=== PATIENT | female | born 1945 | race Two or more races ===

== ENCOUNTER 2022-12-21 02:51 | Inpatient (IN) | payer OTHER ==
[~2022-12-21] VITALS: Ht 167.6 cm; Wt 45.0 kg
[2022-12-21 03:35] LABS: Basophils # (auto) 0.1 10 ^3/uL (0-0.2); Eosinophils # (auto) 0.2 10 ^3/uL (0-0.8); Eosinophils % (auto) 2.3 % (0.0-7.0); Hematocrit 37.4 % (36.0-46.0); Hemoglobin 12.8 g/dL (12.2-16.2); Lymphocytes # (auto) 2.2 10 ^3/uL (0.4-5.4); Lymphocytes % (auto) 29.4 % (10.0-50.0); Mean Corpuscular Hemoglobin 31.4 pg (28.0-32.0); Mean Corpuscular Hgb Conc. 34.2 g/dL (32.0-36.0); Monocytes # (auto) 0.5 10 ^3/uL (0-1.3); Monocytes % (auto) 6.8 % (0.0-12.0); Neutrophils # (auto) 4.6 10 ^3/uL (1.6-8.6); Neutrophils % (auto) 60.5 % (37.0-80.0); Nucleated Red Blood Cells % 0.1 %; Red Blood Cells 4.07 10^6/uL (4.0-5.20); Red Cell Distribution Width 13.8 % (11.8-14.3); White Blood Cell 7.6 10^3/uL (4.4-10.8)
[2022-12-21 04:12] LABS: Partial Thromboplastin Time 49.8 SEC (24.5-34.5)
[2022-12-21 04:29] LABS: INR > 8.0 (0.9-1.15)
[2022-12-21] MEDS ORDERED: PHYTONADIONE (VIT K)10 MG/ML 1ML VIAL SUBCUT ONE (04:45)
[2022-12-21] MEDS ORDERED: PANTOPRAZOLE 40mg/50ML NS AE 50 ML IV ONE (04:45)
[2022-12-21] MEDS ORDERED: PANTOPRAZOLE 80 MG in SODIUM CHL 0.9% 100 ML IV ONE (04:45)
[2022-12-21] MEDS ORDERED: IOHEXOL 300 MG/ML 100ML BOTTLE IJ ONE (05:59)
[2022-12-21] MEDS ORDERED: PANTOPRAZOLE 40 MG/10 ML VIAL INJ IV ONE (06:14)
[2022-12-21 06:39] LABS: Potassium 3.4 mmol/L (3.5-5.1)
[2022-12-21 06:41] LABS: BUN/Creatinine Ratio 26.5 (10.0-20.0)
[2022-12-21 06:42] LABS: Albumin 3.5 g/dL (3.4-5.0); Bilirubin, Total 0.3 mg/dL (0.2-1.0); Calcium 8.4 mg/dL (8.5-10.1); Magnesium 1.8 mg/dL (1.6-2.6); Total Protein 6.3 g/dL (6.4-8.2)
[2022-12-21] MEDS ORDERED: DOCUSATE SOD 100 MG CAP PO PRN (09:15)
[2022-12-21] MEDS ORDERED: ONDANSETRON HCL 4 MG/2 ML VIAL IV PRN (09:15)
[2022-12-21 09:43] LABS: Urine Bacteria None Seen /hpf (None Seen); Urine WBC None Seen /hpf (0 - 5)
[2022-12-21 09:51] LABS: Basophils # (auto) 0.2 10 ^3/uL (0-0.2); Eosinophils # (auto) 0.2 10 ^3/uL (0-0.8); Eosinophils % (auto) 2.6 % (0.0-7.0); Hematocrit 37.8 % (36.0-46.0); Hemoglobin 12.7 g/dL (12.2-16.2); Lymphocytes # (auto) 1.7 10 ^3/uL (0.4-5.4); Lymphocytes % (auto) 24.6 % (10.0-50.0); Mean Corpuscular Hemoglobin 31.2 pg (28.0-32.0); Mean Corpuscular Hgb Conc. 33.5 g/dL (32.0-36.0); Mean Corpuscular Volume 93.2 fL (80.0-100.0); Monocytes # (auto) 0.3 10 ^3/uL (0-1.3); Monocytes % (auto) 4.8 % (0.0-12.0); Neutrophils # (auto) 4.4 10 ^3/uL (1.6-8.6); Nucleated Red Blood Cells % 0.3 %; Red Blood Cells 4.06 10^6/uL (4.0-5.20); Red Cell Distribution Width 13.8 % (11.8-14.3); White Blood Cell 6.7 10^3/uL (4.4-10.8)
[2022-12-21 09:57] LABS: INR > 8.0 (0.9-1.15)
[2022-12-21] MEDS: SODIUM CHLOR 0.9% PF (SALINE LOCK) 10ML VIAL/SYR IV SCH ×2 (12:14→22:11)
[2022-12-21 12:23] VITALS: BP 137/55
[2022-12-21 12:25] LABS: Urine Specific Gravity > 1.050 (1.001-1.035)
[2022-12-21 12:38] VITALS: BP 137/55
[2022-12-21 13:05] LABS: Urine Blood 1+ /uL (Negative); Urine Mucus FEW (None Seen)
[2022-12-21 15:30] VITALS: BP 133/56
[2022-12-21 15:54] LABS: Basophils # (auto) 0.1 10 ^3/uL (0-0.2); Eosinophils # (auto) 0.2 10 ^3/uL (0-0.8); Eosinophils % (auto) 2.9 % (0.0-7.0); Hematocrit 34.5 % (36.0-46.0); Hemoglobin 11.3 g/dL (12.2-16.2); Lymphocytes # (auto) 2.1 10 ^3/uL (0.4-5.4); Lymphocytes % (auto) 35.8 % (10.0-50.0); Mean Corpuscular Hemoglobin 30.8 pg (28.0-32.0); Mean Corpuscular Hgb Conc. 32.7 g/dL (32.0-36.0); Mean Corpuscular Volume 94.1 fL (80.0-100.0); Monocytes # (auto) 0.5 10 ^3/uL (0-1.3); Monocytes % (auto) 8.6 % (0.0-12.0); Neutrophils # (auto) 3.1 10 ^3/uL (1.6-8.6); Neutrophils % (auto) 51.7 % (37.0-80.0); Nucleated Red Blood Cells % 0.2 %; Red Blood Cells 3.66 10^6/uL (4.0-5.20); Red Cell Distribution Width 14.1 % (11.8-14.3); White Blood Cell 5.9 10^3/uL (4.4-10.8)
[2022-12-21 21:36] LABS: Basophils # (auto) 0.1 10 ^3/uL (0-0.2); Eosinophils # (auto) 0.2 10 ^3/uL (0-0.8); Eosinophils % (auto) 3.2 % (0.0-7.0); Hematocrit 34.4 % (36.0-46.0); Hemoglobin 11.4 g/dL (12.2-16.2); Lymphocytes # (auto) 2.1 10 ^3/uL (0.4-5.4); Lymphocytes % (auto) 35.4 % (10.0-50.0); Mean Corpuscular Hemoglobin 30.9 pg (28.0-32.0); Mean Corpuscular Volume 93.5 fL (80.0-100.0); Monocytes # (auto) 0.5 10 ^3/uL (0-1.3); Monocytes % (auto) 7.8 % (0.0-12.0); Neutrophils # (auto) 3.1 10 ^3/uL (1.6-8.6); Neutrophils % (auto) 52.6 % (37.0-80.0); Nucleated Red Blood Cells % 0.3 %; Red Blood Cells 3.68 10^6/uL (4.0-5.20); Red Cell Distribution Width 13.8 % (11.8-14.3); White Blood Cell 5.8 10^3/uL (4.4-10.8)
[2022-12-22 03:16] LABS: Basophils # (auto) 0.1 10 ^3/uL (0-0.2); Basophils % (auto) 1.3 % (0.0-2.0); Eosinophils # (auto) 0.1 10 ^3/uL (0-0.8); Eosinophils % (auto) 2.6 % (0.0-7.0); Hematocrit 33.6 % (36.0-46.0); Hemoglobin 11.3 g/dL (12.2-16.2); Lymphocytes # (auto) 1.9 10 ^3/uL (0.4-5.4); Lymphocytes % (auto) 34.9 % (10.0-50.0); Mean Corpuscular Hemoglobin 31.5 pg (28.0-32.0); Mean Corpuscular Hgb Conc. 33.8 g/dL (32.0-36.0); Mean Corpuscular Volume 93.2 fL (80.0-100.0); Monocytes # (auto) 0.5 10 ^3/uL (0-1.3); Monocytes % (auto) 8.7 % (0.0-12.0); Neutrophils # (auto) 2.9 10 ^3/uL (1.6-8.6); Neutrophils % (auto) 52.5 % (37.0-80.0); Nucleated Red Blood Cells % 0.1 %; Red Cell Distribution Width 13.7 % (11.8-14.3); White Blood Cell 5.5 10^3/uL (4.4-10.8)
[2022-12-22] MEDS: SODIUM CHLOR 0.9% PF (SALINE LOCK) 10ML VIAL/SYR IV SCH (05:53)
[2022-12-22 06:39] LABS: INR 1.61 (0.9-1.15)
[2022-12-22 08:28] VITALS: BP 131/49
== END 2022-12-22 10:55 | disposition left against medical advice (07) | DRG 159 ==
LOC: EDBD 02:51 → ER 02:51 → OVERFLOW 09:03
PROVIDERS: ADMIT Internal Medicine; ATTEND Internal Medicine
PROC: 30233K1 Transfusion of Nonautologous Frozen Plasma into Peripheral Vein, Percutaneous Approach (ICD-10-PCS; principal; 2022-12-21)
DX: K14.8 Other diseases of tongue (principal); R79.1 Abnormal coagulation profile; R58 Hemorrhage, not elsewhere classified; S00.502A Unspecified superficial injury of oral cavity, initial encounter; X58.XXXA Exposure to other specified factors, initial encounter; Z79.01 Long term (current) use of anticoagulants; Z86.718 Personal history of other venous thrombosis and embolism; Z88.5 Allergy status to narcotic agent; Y93.89 Activity, other specified; Y92.89 Other specified places as the place of occurrence of the external cause; Y99.8 Other external cause status
CPT/HCPCS: 36415; 70450; 74177; 80053; 81001; 83735; 83880; 84484; 85025; 85610; 85730; 86850; 86900; 86901; 96365; 96366; 96368; 96372; 99291; C9113; G0378; J3430

== ENCOUNTER 2023-01-29 03:58 | Inpatient (IN) | payer OTHER ==
[~2023-01-29] VITALS: Ht 152.4 cm; Wt 62.6 kg
[2023-01-29 04:30] VITALS: PULSE 77; RESP 16; O2SAT 94
[2023-01-29] MEDS ORDERED: SODIUM CHLORIDE 0.9% 1,000 ML IV ONE (04:30)
[2023-01-29] MEDS ORDERED: ONDANSETRON HCL 4 MG/2 ML VIAL IV ONE (04:30)
[2023-01-29] MEDS ORDERED: HYDROmorphone HCL 2 MG/ML VL/or syr IV ONE (04:30)
[2023-01-29 05:31] LABS: Basophils # (auto) 0 10 ^3/uL (0-0.2); Basophils % (auto) 0.6 % (0.0-2.0); Eosinophils # (auto) 0 10 ^3/uL (0-0.8); Eosinophils % (auto) 0.7 % (0.0-7.0); Hematocrit 35.1 % (36.0-46.0); Hemoglobin 11.7 g/dL (12.2-16.2); Lymphocytes # (auto) 0.7 10 ^3/uL (0.4-5.4); Lymphocytes % (auto) 12.4 % (10.0-50.0); Mean Corpuscular Hemoglobin 31.5 pg (28.0-32.0); Mean Corpuscular Hgb Conc. 33.3 g/dL (32.0-36.0); Mean Corpuscular Volume 94.6 fL (80.0-100.0); Monocytes # (auto) 0.5 10 ^3/uL (0-1.3); Monocytes % (auto) 8.4 % (0.0-12.0); Neutrophils # (auto) 4.7 10 ^3/uL (1.6-8.6); Neutrophils % (auto) 77.9 % (37.0-80.0); Nucleated Red Blood Cells % 0.2 %; Red Blood Cells 3.71 10^6/uL (4.0-5.20)
[2023-01-29 05:33] LABS: Albumin 3.1 g/dL (3.4-5.0); Calcium 8.2 mg/dL (8.5-10.1); Potassium 3.1 mmol/L (3.5-5.1)
[2023-01-29 05:38] LABS: BUN/Creatinine Ratio 19.5 (10.0-20.0); Bilirubin, Total 0.4 mg/dL (0.2-1.0); Total Protein 6.4 g/dL (6.4-8.2)
[2023-01-29 05:45] LABS: INR 1.71 (0.9-1.15)
[2023-01-29 08:00] VITALS: PULSE 53; RESP 12; O2SAT 97
[2023-01-29] MEDS ORDERED: ONDANSETRON HCL 4 MG/2 ML VIAL IV PRN (09:45)
[2023-01-29] MEDS ORDERED: DOCUSATE SOD 100 MG CAP PO PRN (09:45)
[2023-01-29] MEDS ORDERED: POTASSIUM EFFERVESENT TAB 25 MEQ PO ONE (09:45)
[2023-01-29] MEDS ORDERED: MORPHINE SULFATE INJ 2 MG/ml SYRG IV PRN (09:45)
[2023-01-29] MEDS: HYDROcodone-ACET 5/325MG TAB PO PRN ×2 (11:52→20:08)
[2023-01-29] MEDS ORDERED: WARFARIN SODIUM 5 MG TAB PO ONE (17:00)
[2023-01-29 19:55] VITALS: RESP 12; O2SAT 97
[2023-01-29 23:39] VITALS: BP 129/48; PULSE 60; RESP 16; TEMP 98.2; O2SAT 95
[2023-01-30] VITALS (8 sets, daily range): BP systolic 117–134; BP diastolic 54–66; PULSE 57–70; RESP 14–20; TEMP 97.7–98.9; O2SAT 91–98
[2023-01-30] MEDS: HYDROcodone-ACET 5/325MG TAB PO PRN ×4 (00:55→20:28)
[2023-01-30] MEDS ORDERED: WARF-66 PO (04:24)
[2023-01-30] MEDS ORDERED: ATOR10TA52 PO (04:27)
[2023-01-30] MEDS ORDERED: OXY5T GT (04:28)
[2023-01-30] MEDS ORDERED: CALC500T30 PO (04:29)
[2023-01-30] MEDS ORDERED: CHOL20007 PO (04:30)
[2023-01-30 07:13] LABS: Potassium 3.9 mmol/L (3.5-5.1)
[2023-01-30 07:18] LABS: Basophils # (auto) 0 10 ^3/uL (0-0.2); Basophils % (auto) 0.6 % (0.0-2.0); Eosinophils # (auto) 0.1 10 ^3/uL (0-0.8); Eosinophils % (auto) 2.9 % (0.0-7.0); Hematocrit 33.5 % (36.0-46.0); Hemoglobin 11.1 g/dL (12.2-16.2); Lymphocytes # (auto) 1.4 10 ^3/uL (0.4-5.4); Lymphocytes % (auto) 31.3 % (10.0-50.0); Mean Corpuscular Hemoglobin 31.5 pg (28.0-32.0); Mean Corpuscular Hgb Conc. 33.3 g/dL (32.0-36.0); Mean Corpuscular Volume 94.7 fL (80.0-100.0); Monocytes # (auto) 0.5 10 ^3/uL (0-1.3); Monocytes % (auto) 10.6 % (0.0-12.0); Neutrophils # (auto) 2.5 10 ^3/uL (1.6-8.6); Neutrophils % (auto) 54.6 % (37.0-80.0); Red Blood Cells 3.53 10^6/uL (4.0-5.20); White Blood Cell 4.6 10^3/uL (4.4-10.8)
[2023-01-30 07:22] LABS: Albumin 2.7 g/dL (3.4-5.0); BUN/Creatinine Ratio 18.9 (10.0-20.0); Bilirubin, Total 0.5 mg/dL (0.2-1.0); Calcium 8.2 mg/dL (8.5-10.1); Total Protein 5.9 g/dL (6.4-8.2)
[2023-01-30 08:30] LABS: INR 1.81 (0.9-1.15); Partial Thromboplastin Time 41.7 SEC (24.5-34.5)
[2023-01-30] MEDS ORDERED: WARFARIN SODIUM 5 MG TAB PO ONE (17:00)
[2023-01-31] VITALS (7 sets, daily range): BP systolic 97–138; BP diastolic 58–73; PULSE 51–82; RESP 16–22; TEMP 98–98.3; O2SAT 90–99
[2023-01-31] MEDS: HYDROcodone-ACET 5/325MG TAB PO PRN ×4 (05:36→23:32)
[2023-01-31 06:21] LABS: Basophils # (auto) 0 10 ^3/uL (0-0.2); Eosinophils # (auto) 0.1 10 ^3/uL (0-0.8); Eosinophils % (auto) 3.6 % (0.0-7.0); Hematocrit 35.2 % (36.0-46.0); Hemoglobin 11.6 g/dL (12.2-16.2); Lymphocytes % (auto) 25.6 % (10.0-50.0); Mean Corpuscular Hemoglobin 31.2 pg (28.0-32.0); Mean Corpuscular Hgb Conc. 32.9 g/dL (32.0-36.0); Mean Corpuscular Volume 94.6 fL (80.0-100.0); Monocytes # (auto) 0.4 10 ^3/uL (0-1.3); Monocytes % (auto) 9.5 % (0.0-12.0); Neutrophils # (auto) 2.4 10 ^3/uL (1.6-8.6); Neutrophils % (auto) 60.3 % (37.0-80.0); Nucleated Red Blood Cells % 0.3 %; Red Blood Cells 3.72 10^6/uL (4.0-5.20); Red Cell Distribution Width 13.6 % (11.8-14.3)
[2023-01-31 06:26] LABS: INR 1.9 (0.9-1.15); Partial Thromboplastin Time 41.6 SEC (24.5-34.5)
[2023-01-31 06:32] LABS: Potassium 3.7 mmol/L (3.5-5.1)
[2023-01-31 06:48] LABS: BUN/Creatinine Ratio 15.5 (10.0-20.0); Calcium 8.4 mg/dL (8.5-10.1)
[2023-01-31 15:50] LABS: Urine Bacteria MANY /hpf (None Seen); Urine Blood TRACE /uL (Negative); Urine Mucus FEW (None Seen); Urine Specific Gravity 1.016 (1.001-1.035); Urine WBC 79 /hpf (0 - 5)
[2023-01-31] MEDS ORDERED: DOCUSATE SOD 100 MG CAP PO ONE (16:30)
[2023-01-31] MEDS ORDERED: cefTRIAXone 1GM/50ML D5W 50 ML IV ONE (16:30)
[2023-01-31] MEDS ORDERED: WARFARIN SODIUM 5 MG TAB PO ONE (17:00)
[2023-01-31] MEDS: LACTULOSE 20Gm/30ML SOLN PO SCH (22:00)
[2023-01-31] MEDS ORDERED: HYDROcodone-ACET 5/325MG TAB PO ONE (23:00)
[2023-01-31] MEDS: DOCUSATE SOD 100 MG CAP PO SCH (23:34)
[2023-02-01] VITALS (7 sets, daily range): BP systolic 110–152; BP diastolic 56–82; PULSE 60–83; RESP 16–17; TEMP 97.5–98.3; O2SAT 92–99
[2023-02-01] MEDS: HYDROcodone-ACET 7.5/325MG TAB PO PRN ×2 (02:12→22:10)
[2023-02-01] MEDS: HYDROcodone-ACET 5/325MG TAB PO PRN ×3 (04:43→17:11)
[2023-02-01 07:38] LABS: Basophils # (auto) 0 10 ^3/uL (0-0.2); Eosinophils # (auto) 0.1 10 ^3/uL (0-0.8); Eosinophils % (auto) 3.5 % (0.0-7.0); Hematocrit 35.3 % (36.0-46.0); Hemoglobin 11.6 g/dL (12.2-16.2); Lymphocytes # (auto) 1.3 10 ^3/uL (0.4-5.4); Lymphocytes % (auto) 33.7 % (10.0-50.0); Mean Corpuscular Hemoglobin 31.2 pg (28.0-32.0); Mean Corpuscular Hgb Conc. 32.9 g/dL (32.0-36.0); Mean Corpuscular Volume 94.9 fL (80.0-100.0); Monocytes # (auto) 0.4 10 ^3/uL (0-1.3); Monocytes % (auto) 10.7 % (0.0-12.0); Neutrophils % (auto) 51.1 % (37.0-80.0); Nucleated Red Blood Cells % 0.1 %; Red Blood Cells 3.72 10^6/uL (4.0-5.20); Red Cell Distribution Width 13.7 % (11.8-14.3); White Blood Cell 3.9 10^3/uL (4.4-10.8)
[2023-02-01 07:45] LABS: INR 2.65 (0.9-1.15)
[2023-02-01 07:53] LABS: Calcium 8.4 mg/dL (8.5-10.1); Potassium 3.8 mmol/L (3.5-5.1)
[2023-02-01 07:56] LABS: BUN/Creatinine Ratio 19.4 (10.0-20.0)
[2023-02-01] MEDS: cefTRIAXone 1GM/50ML D5W 50 ML IV SCH (09:05)
[2023-02-01] MEDS: LACTULOSE 20Gm/30ML SOLN PO SCH ×2 (09:10→22:00)
[2023-02-01] MEDS: DOCUSATE SOD 100 MG CAP PO SCH ×2 (09:10→22:00)
[2023-02-01] MEDS ORDERED: WARFARIN SODIUM 2 MG TAB PO ONE (17:00)
[2023-02-01] MEDS ORDERED: IOHEXOL 300 MG/ML 100ML BOTTLE IJ ONE (18:39)
[2023-02-01] MEDS ORDERED: ACETAMINOPHEN 500 MG TAB PO PRN (19:15)
[2023-02-02] MEDS: HYDROcodone-ACET 7.5/325MG TAB PO PRN ×2 (02:12→06:25)
[2023-02-02 05:00] VITALS: BP 132/55; PULSE 61; RESP 18; TEMP 97.8; O2SAT 98
[2023-02-02 06:36] LABS: Basophils # (auto) 0 10 ^3/uL (0-0.2); Basophils % (auto) 1.1 % (0.0-2.0); Eosinophils # (auto) 0.2 10 ^3/uL (0-0.8); Eosinophils % (auto) 4.3 % (0.0-7.0); Hematocrit 34.9 % (36.0-46.0); Hemoglobin 11.5 g/dL (12.2-16.2); Lymphocytes # (auto) 1.2 10 ^3/uL (0.4-5.4); Lymphocytes % (auto) 32.6 % (10.0-50.0); Mean Corpuscular Hgb Conc. 32.9 g/dL (32.0-36.0); Mean Corpuscular Volume 94.2 fL (80.0-100.0); Monocytes # (auto) 0.4 10 ^3/uL (0-1.3); Nucleated Red Blood Cells % 0.1 %; Red Cell Distribution Width 13.5 % (11.8-14.3); White Blood Cell 3.8 10^3/uL (4.4-10.8)
[2023-02-02 06:44] LABS: INR 2.48 (0.9-1.15)
[2023-02-02 07:00] LABS: Albumin 2.6 g/dL (3.4-5.0); Potassium 3.8 mmol/L (3.5-5.1)
[2023-02-02 07:08] LABS: Bilirubin, Total 0.3 mg/dL (0.2-1.0); Calcium 8.6 mg/dL (8.5-10.1); Total Protein 5.8 g/dL (6.4-8.2)
[2023-02-02 08:00] VITALS: BP 123/57; PULSE 50; PULSE 66; RESP 16; TEMP 98; O2SAT 97
[2023-02-02 08:30] VITALS: BP 123/57; PULSE 66; RESP 16; TEMP 98.3; O2SAT 97
[2023-02-02 09:23] LABS: Carcinoembryonic Antigen 8.59 ng/mL (<5.0 OR =)
[2023-02-02] MEDS: cefTRIAXone 1GM/50ML D5W 50 ML IV SCH (09:36)
[2023-02-02] MEDS ORDERED: NITR-52 PO (09:37)
[2023-02-02] MEDS: DOCUSATE SOD 100 MG CAP PO SCH (09:43)
[2023-02-02] MEDS: LACTULOSE 20Gm/30ML SOLN PO SCH (09:43)
[2023-02-02] MEDS ORDERED: PANTOPRAZOLE 40 MG TAB PO SCH (10:00)
[2023-02-02 13:23] VITALS: BP 142/51; PULSE 69; RESP 16; TEMP 98; O2SAT 95
[2023-02-02 14:44] VITALS: BP 134/78; PULSE 77; RESP 17; TEMP 98.2; O2SAT 98
[2023-02-02] MEDS ORDERED: WARFARIN SODIUM 2 MG TAB PO ONE (17:00)
== END 2023-02-02 15:10 | disposition home or self-care (01) | DRG 534 ==
LOC: ER 03:58 → EDBD 03:58 → TELE 09:46 → TELE-CENTR 22:56
PROVIDERS: ADMIT Internal Medicine Pulmonary Disease; ATTEND Internal Medicine
DX: S72.92XA Unspecified fracture of left femur, initial encounter for closed fracture (principal); E44.1 Mild protein-calorie malnutrition; D64.9 Anemia, unspecified; E87.6 Hypokalemia; K76.9 Liver disease, unspecified; F17.200 Nicotine dependence, unspecified, uncomplicated; M47.812 Spondylosis without myelopathy or radiculopathy, cervical region; M13.88 Other specified arthritis, other site; W18.39XA Other fall on same level, initial encounter; Z68.27 Body mass index [BMI] 27.0-27.9, adult; Z88.5 Allergy status to narcotic agent; Z79.01 Long term (current) use of anticoagulants; Z82.49 Family history of ischemic heart disease and other diseases of the circulatory system; Z83.3 Family history of diabetes mellitus; Z86.718 Personal history of other venous thrombosis and embolism; Z86.19 Personal history of other infectious and parasitic diseases; Z90.49 Acquired absence of other specified parts of digestive tract; Z98.82 Breast implant status; Y93.89 Activity, other specified; Y92.89 Other specified places as the place of occurrence of the external cause; Y99.8 Other external cause status
CPT/HCPCS: 36415; 70450; 71250; 72125; 72170; 73700; 74176; 74178; 80048; 80053; 80061; 81001; 82105; 82306; 82378; 82550; 82607; 84443; 84484; 85025; 85610; 85730; 86301; 86304; 87086; 87088; 87186; 93005; 97110; 97116; 97163; 97530; G0378; J0696; J2405

== ENCOUNTER 2023-05-10 10:06 | Inpatient (IN) | payer OTHER ==
[~2023-05-10] VITALS: Ht 157.5 cm; Wt 57.0 kg
[~2023-05-10 10:06] MED LIST: ATOR10TA52 PO; CALC500T30 PO; CHOL20007 PO; NITR-52 PO; OXY5T GT; WARF-66 PO
[2023-05-10 10:37] LABS: Basophils # (auto) 0.1 10 ^3/uL (0-0.2); Basophils % (auto) 1.2 % (0.0-2.0); Eosinophils # (auto) 0.1 10 ^3/uL (0-0.8); Eosinophils % (auto) 0.9 % (0.0-7.0); Hematocrit 35.7 % (36.0-46.0); Hemoglobin 11.5 g/dL (12.2-16.2); Lymphocytes % (auto) 15.5 % (10.0-50.0); Mean Corpuscular Hemoglobin 30.1 pg (28.0-32.0); Mean Corpuscular Hgb Conc. 32.3 g/dL (32.0-36.0); Mean Corpuscular Volume 93.2 fL (80.0-100.0); Monocytes # (auto) 0.7 10 ^3/uL (0-1.3); Neutrophils # (auto) 4.9 10 ^3/uL (1.6-8.6); Neutrophils % (auto) 72.4 % (37.0-80.0); Nucleated Red Blood Cells % 0.2 %; Red Blood Cells 3.83 10^6/uL (4.0-5.20); Red Cell Distribution Width 15.7 % (11.8-14.3); White Blood Cell 6.7 10^3/uL (4.4-10.8)
[2023-05-10 10:57] LABS: Alanine Aminotransferase 18 U/L (7-40); Alkaline Phosphatase 462 U/L (46-116); Anion Gap 7 (5-15); Aspartate Aminotransferase 47 U/L (13-40); BUN/Creatinine Ratio 15.1 (10.0-20.0); Blood Urea Nitrogen 13 mg/dL (9-23); Calcium 9.3 mg/dL (8.5-10.1); Carbon Dioxide 27 mmol/L (20-30); Chloride 105 mmol/L (98-107); Glucose 105 mg/dL (74-106); Potassium 3.9 mmol/L (3.5-5.1); Sodium 139 mmol/L (136-145); Total Protein 6.3 g/dL (5.7-8.2)
[2023-05-10 11:10] LABS: INR 3.82 (0.9-1.15); Partial Thromboplastin Time 44.8 SEC (24.5-34.5); Prothrombin Time 36.7 sec (9.3-11.8)
[2023-05-10] MEDS ORDERED: IOHEXOL 350 MG/ML 100ML IJ ONE (14:06)
[2023-05-10] MEDS ORDERED: MORPHINE SULFATE INJ 2 MG/ml SYRG IV PRN (14:30)
[2023-05-10] MEDS ORDERED: ACETAMINOPHEN 325 MG TAB PO PRN (14:30)
[2023-05-10] MEDS ORDERED: ATOR20TA50 PO (14:30)
[2023-05-10] MEDS ORDERED: NITROGLYCERIN 0.4 MG SL TAB SL PRN (14:30)
[2023-05-10] MEDS ORDERED: HEPARIN SODIUM (PORCINE) 5000 UNITS/ML 1ML VIAL IV ONE (14:30)
[2023-05-10] MEDS ORDERED: DOCUSATE SOD 100 MG CAP PO PRN (14:30)
[2023-05-10] MEDS ORDERED: PANTOPRAZOLE 40 MG/10 ML VIAL INJ IV ONE (14:45)
[2023-05-10 17:00] VITALS: PULSE 72; RESP 19; O2SAT 95
[2023-05-10] MEDS: HEPARIN DRIP/D5W 100UNITS/ML 250 ML IV SCH (17:04)
[2023-05-10] MEDS: SENNA 8.6 MG TAB PO SCH (22:00)
[2023-05-10] MEDS: HYDROcodone-ACET 7.5/325MG TAB PO PRN (22:02)
[2023-05-10 23:18] LABS: INR 3.56 (0.9-1.15); Partial Thromboplastin Time 47.3 SEC (24.5-34.5); Prothrombin Time 34.4 sec (9.3-11.8)
[2023-05-11] VITALS (7 sets, daily range): BP systolic 103–136; BP diastolic 44–68; PULSE 73–93; RESP 18–20; TEMP 97.6–99.2; O2SAT 93–98
[2023-05-11 06:17] LABS: Basophils # (auto) 0 10 ^3/uL (0-0.2); Basophils % (auto) 0.8 % (0.0-2.0); Eosinophils # (auto) 0.1 10 ^3/uL (0-0.8); Eosinophils % (auto) 2.3 % (0.0-7.0); Hematocrit 30.8 % (36.0-46.0); Hemoglobin 10.1 g/dL (12.2-16.2); Lymphocytes % (auto) 17.5 % (10.0-50.0); Mean Corpuscular Hemoglobin 30.5 pg (28.0-32.0); Mean Corpuscular Hgb Conc. 32.9 g/dL (32.0-36.0); Mean Corpuscular Volume 92.6 fL (80.0-100.0); Monocytes # (auto) 0.6 10 ^3/uL (0-1.3); Neutrophils # (auto) 3.8 10 ^3/uL (1.6-8.6); Neutrophils % (auto) 68.4 % (37.0-80.0); Red Blood Cells 3.33 10^6/uL (4.0-5.20); Red Cell Distribution Width 15.5 % (11.8-14.3); White Blood Cell 5.6 10^3/uL (4.4-10.8)
[2023-05-11 06:20] LABS: Alanine Aminotransferase 17 U/L (7-40); Alkaline Phosphatase 481 U/L (46-116); Anion Gap 8 (5-15); BUN/Creatinine Ratio 16.8 (10.0-20.0); Blood Urea Nitrogen 16 mg/dL (9-23); Calcium 8.4 mg/dL (8.7-10.4); Carbon Dioxide 27 mmol/L (20-30); Chloride 105 mmol/L (98-107); Glucose 95 mg/dL (74-106); Potassium 3.5 mmol/L (3.5-5.1); Sodium 140 mmol/L (136-145)
[2023-05-11 06:21] LABS: Albumin 3.3 g/dL (3.2-4.8); Aspartate Aminotransferase 54 U/L (13-40)
[2023-05-11 06:22] LABS: Bilirubin, Total 0.6 mg/dL (0.2-1.0); Total Protein 5.4 g/dL (5.7-8.2)
[2023-05-11 06:32] LABS: INR 3.02 (0.9-1.15); Partial Thromboplastin Time 53.2 SEC (24.5-34.5); Prothrombin Time 29.5 sec (9.3-11.8)
[2023-05-11] MEDS: NICOTINE 21MG/24 HR TOPICAL PATCH TD SCH (10:00)
[2023-05-11] MEDS: PANTOPRAZOLE 40 MG/10 ML VIAL INJ IV SCH (10:10)
[2023-05-11] MEDS: ATORVASTATIN 20 MG TAB PO SCH (10:10)
[2023-05-11] MEDS: HEPARIN DRIP/D5W 100UNITS/ML 250 ML IV SCH (11:00)
[2023-05-11 17:57] LABS: INR 3.09 (0.9-1.15); Prothrombin Time 30.7 sec (9.3-11.8)
[2023-05-11 18:11] LABS: Partial Thromboplastin Time > 139.0 SEC (24.5-34.5)
[2023-05-11] MEDS ORDERED: HEPARIN DRIP/D5W 100UNITS/ML 250 ML IV SCH (19:15)
[2023-05-11] MEDS: HYDROcodone-ACET 7.5/325MG TAB PO PRN (19:58)
[2023-05-11] MEDS: SENNA 8.6 MG TAB PO SCH (20:16)
[2023-05-12] VITALS (8 sets, daily range): BP systolic 106–140; BP diastolic 50–64; PULSE 68–81; RESP 15–20; TEMP 97.6–98.6; O2SAT 90–99
[2023-05-12 03:48] LABS: INR 3.11 (0.9-1.15); Prothrombin Time 30.3 sec (9.3-11.8)
[2023-05-12 03:50] LABS: Partial Thromboplastin Time > 139.0 SEC (24.5-34.5)
[2023-05-12 05:24] LABS: Basophils # (auto) 0 10 ^3/uL (0-0.2); Basophils % (auto) 0.8 % (0.0-2.0); Eosinophils # (auto) 0.1 10 ^3/uL (0-0.8); Eosinophils % (auto) 2.5 % (0.0-7.0); Hemoglobin 10.2 g/dL (12.2-16.2); Lymphocytes % (auto) 22.3 % (10.0-50.0); Mean Corpuscular Hemoglobin 31.1 pg (28.0-32.0); Mean Corpuscular Hgb Conc. 33.9 g/dL (32.0-36.0); Mean Corpuscular Volume 91.8 fL (80.0-100.0); Monocytes # (auto) 0.5 10 ^3/uL (0-1.3); Monocytes % (auto) 11.1 % (0.0-12.0); Neutrophils # (auto) 2.9 10 ^3/uL (1.6-8.6); Neutrophils % (auto) 63.3 % (37.0-80.0); Red Blood Cells 3.26 10^6/uL (4.0-5.20); Red Cell Distribution Width 15.3 % (11.8-14.3); White Blood Cell 4.7 10^3/uL (4.4-10.8)
[2023-05-12 05:28] LABS: Alanine Aminotransferase 16 U/L (7-40); Albumin 3.2 g/dL (3.2-4.8); Alkaline Phosphatase 436 U/L (46-116); Anion Gap 5 (5-15); Aspartate Aminotransferase 46 U/L (13-40); BUN/Creatinine Ratio 20.3 (10.0-20.0); Bilirubin, Total 0.6 mg/dL (0.2-1.0); Blood Urea Nitrogen 16 mg/dL (9-23); Calcium 8.4 mg/dL (8.7-10.4); Carbon Dioxide 29 mmol/L (20-30); Chloride 105 mmol/L (98-107); Glucose 101 mg/dL (74-106); Magnesium 1.8 mg/dL (1.6-2.6); Potassium 3.6 mmol/L (3.5-5.1); Sodium 139 mmol/L (136-145); Total Protein 5.2 g/dL (5.7-8.2)
[2023-05-12] MEDS: PANTOPRAZOLE 40 MG/10 ML VIAL INJ IV SCH (09:09)
[2023-05-12] MEDS: ATORVASTATIN 20 MG TAB PO SCH (09:09)
[2023-05-12] MEDS: NICOTINE 21MG/24 HR TOPICAL PATCH TD SCH (09:11)
[2023-05-12 12:09] LABS: INR 3.04 (0.9-1.15); Prothrombin Time 29.7 sec (9.3-11.8)
[2023-05-12 12:20] LABS: Partial Thromboplastin Time 93.6 SEC (24.5-34.5)
[2023-05-12] MEDS ORDERED: HEPARIN DRIP/D5W 100UNITS/ML 250 ML IV SCH (13:30)
[2023-05-12] MEDS: ONDANSETRON HCL 4 MG/2 ML VIAL IV PRN (16:45)
[2023-05-12 17:27] LABS: Urine Bacteria MANY /hpf (None Seen); Urine Blood Negative /uL (Negative); Urine Clarity HAZY (Clear); Urine Color Yellow (Yellow); Urine Mucus FEW (None Seen); Urine Protein, UAD Negative (Negative); Urine Specific Gravity 1.011 (1.001-1.035); Urine WBC 5 /hpf (0 - 5)
[2023-05-12 20:21] LABS: INR 2.36 (0.9-1.15); Prothrombin Time 23.4 sec (9.3-11.8)
[2023-05-12] MEDS: HYDROcodone-ACET 7.5/325MG TAB PO PRN (21:23)
[2023-05-12] MEDS: SENNA 8.6 MG TAB PO SCH (21:23)
[2023-05-13] VITALS (13 sets, daily range): BP systolic 110–143; BP diastolic 40–68; PULSE 50–80; RESP 12–24; TEMP 97.8–98.1; O2SAT 90–99
[2023-05-13 02:23] LABS: INR 2.17 (0.9-1.15); Partial Thromboplastin Time 55.8 SEC (24.5-34.5); Prothrombin Time 21.7 sec (9.3-11.8)
[2023-05-13] MEDS: HYDROcodone-ACET 7.5/325MG TAB PO PRN (05:42)
[2023-05-13] MEDS: ATORVASTATIN 20 MG TAB PO SCH (09:07)
[2023-05-13] MEDS: NICOTINE 21MG/24 HR TOPICAL PATCH TD SCH (09:08)
[2023-05-13] MEDS: PANTOPRAZOLE 40 MG/10 ML VIAL INJ IV SCH (09:08)
[2023-05-13 09:25] LABS: INR 2.05 (0.9-1.15); Prothrombin Time 20.5 sec (9.3-11.8)
[2023-05-13] MEDS ORDERED: cefTRIAXone 1GM/50ML D5W 50 ML IV ONE (09:45)
[2023-05-13] MEDS ORDERED: ANGIOMAX 250 MG VIAL IV ONE (12:13)
[2023-05-13] MEDS ORDERED: fentaNYL CITRATE 100 MCG/2 ML VL ONE (12:13)
[2023-05-13] MEDS ORDERED: SODIUM CHL 0.9% 0 ML ONE (12:13)
[2023-05-13] MEDS ORDERED: MIDAZOLAM HCL 2MG/2ML 2ml VIAL (1mg/ml) ONE (12:13)
[2023-05-13] MEDS ORDERED: LIDOCAINE 2%HCL (LOCAL ANESTH.) INJ 20ML MDV ONE (12:23)
[2023-05-13] MEDS ORDERED: IODIXANOL 320MG/ML 100ML BTL IV ONE (12:23)
[2023-05-13] MEDS: HYDROcodone-ACET 5/325MG TAB PO PRN (18:20)
[2023-05-13 18:52] LABS: INR 2.02 (0.9-1.15); Partial Thromboplastin Time 47.4 SEC (24.5-34.5); Prothrombin Time 20.3 sec (9.3-11.8)
[2023-05-13] MEDS: HEPARIN DRIP/D5W 100UNITS/ML 250 ML IV SCH (20:00)
[2023-05-13] MEDS: SENNA 8.6 MG TAB PO SCH (22:39)
[2023-05-14] VITALS (7 sets, daily range): BP systolic 108–145; BP diastolic 54–85; PULSE 60–89; RESP 16–18; TEMP 97.5–98.8; O2SAT 90–98
[2023-05-14] MEDS: HYDROcodone-ACET 7.5/325MG TAB PO PRN ×3 (01:23→22:02)
[2023-05-14 03:02] LABS: INR 2.02 (0.9-1.15); Partial Thromboplastin Time 62.5 SEC (24.5-34.5); Prothrombin Time 20.3 sec (9.3-11.8)
[2023-05-14 06:33] LABS: INR 1.92 (0.9-1.15); Prothrombin Time 19.3 sec (9.3-11.8)
[2023-05-14] MEDS: PANTOPRAZOLE 40 MG/10 ML VIAL INJ IV SCH (09:43)
[2023-05-14] MEDS: cefTRIAXone 1GM/50ML D5W 50 ML IV SCH (09:43)
[2023-05-14] MEDS: NICOTINE 21MG/24 HR TOPICAL PATCH TD SCH (09:44)
[2023-05-14] MEDS: ATORVASTATIN 20 MG TAB PO SCH (09:44)
[2023-05-14 16:15] LABS: Basophils # (auto) 0.1 10 ^3/uL (0-0.2); Basophils % (auto) 1.1 % (0.0-2.0); Eosinophils # (auto) 0.1 10 ^3/uL (0-0.8); Eosinophils % (auto) 1.3 % (0.0-7.0); Hemoglobin 10.2 g/dL (12.2-16.2); Lymphocytes % (auto) 16.1 % (10.0-50.0); Mean Corpuscular Hemoglobin 30.1 pg (28.0-32.0); Mean Corpuscular Hgb Conc. 32.9 g/dL (32.0-36.0); Mean Corpuscular Volume 91.4 fL (80.0-100.0); Monocytes # (auto) 0.6 10 ^3/uL (0-1.3); Monocytes % (auto) 10.2 % (0.0-12.0); Neutrophils # (auto) 4.4 10 ^3/uL (1.6-8.6); Neutrophils % (auto) 71.3 % (37.0-80.0); Nucleated Red Blood Cells % 0.1 %; Red Blood Cells 3.39 10^6/uL (4.0-5.20); Red Cell Distribution Width 14.8 % (11.8-14.3); White Blood Cell 6.1 10^3/uL (4.4-10.8)
[2023-05-14 16:32] LABS: INR 1.79 (0.9-1.15); Partial Thromboplastin Time 53.2 SEC (24.5-34.5); Prothrombin Time 18.1 sec (9.3-11.8)
[2023-05-14] MEDS: HEPARIN DRIP/D5W 100UNITS/ML 250 ML IV SCH (19:56)
[2023-05-14] MEDS: SENNA 8.6 MG TAB PO SCH (22:02)
[2023-05-15] VITALS (7 sets, daily range): BP systolic 115–160; BP diastolic 54–75; PULSE 65–88; RESP 16–21; TEMP 36.7; O2SAT 93–96
[2023-05-15] MEDS: HYDROcodone-ACET 7.5/325MG TAB PO PRN ×2 (03:48→18:52)
[2023-05-15 08:52] LABS: INR 1.53 (0.9-1.15); Prothrombin Time 15.6 sec (9.3-11.8)
[2023-05-15] MEDS: cefTRIAXone 1GM/50ML D5W 50 ML IV SCH (09:26)
[2023-05-15] MEDS: PANTOPRAZOLE 40 MG/10 ML VIAL INJ IV SCH (09:32)
[2023-05-15] MEDS: ATORVASTATIN 20 MG TAB PO SCH (09:32)
[2023-05-15] MEDS: NICOTINE 21MG/24 HR TOPICAL PATCH TD SCH (09:33)
[2023-05-15] MEDS ORDERED: GADOTERATE MEG 10 MMOL/20ml INJ (0.5MMOL/ml) IV ONE (11:13)
[2023-05-15] MEDS: HEPARIN DRIP/D5W 100UNITS/ML 250 ML IV SCH (20:00)
[2023-05-15] MEDS: SENNA 8.6 MG TAB PO SCH (22:33)
[2023-05-15] MEDS: HYDROcodone-ACET 5/325MG TAB PO PRN (22:39)
[2023-05-16] VITALS (8 sets, daily range): BP systolic 113–138; BP diastolic 61–70; PULSE 64–78; RESP 14–20; TEMP 98–98.5; O2SAT 92–96
[2023-05-16] MEDS: HYDROcodone-ACET 7.5/325MG TAB PO PRN ×3 (04:51→21:56)
[2023-05-16 05:40] LABS: Basophils # (auto) 0 10 ^3/uL (0-0.2); Eosinophils # (auto) 0.1 10 ^3/uL (0-0.8); Eosinophils % (auto) 2.4 % (0.0-7.0); Hematocrit 31.1 % (36.0-46.0); Hemoglobin 10.3 g/dL (12.2-16.2); Lymphocytes # (auto) 1.1 10 ^3/uL (0.4-5.4); Lymphocytes % (auto) 26.8 % (10.0-50.0); Mean Corpuscular Hemoglobin 30.4 pg (28.0-32.0); Mean Corpuscular Volume 92.1 fL (80.0-100.0); Monocytes # (auto) 0.5 10 ^3/uL (0-1.3); Monocytes % (auto) 11.1 % (0.0-12.0); Neutrophils # (auto) 2.5 10 ^3/uL (1.6-8.6); Neutrophils % (auto) 58.7 % (37.0-80.0); Red Blood Cells 3.38 10^6/uL (4.0-5.20); Red Cell Distribution Width 14.7 % (11.8-14.3); White Blood Cell 4.2 10^3/uL (4.4-10.8)
[2023-05-16 05:49] LABS: INR 1.24 (0.9-1.15); Partial Thromboplastin Time 43.6 SEC (24.5-34.5); Prothrombin Time 12.8 sec (9.3-11.8)
[2023-05-16] MEDS: HEPARIN DRIP/D5W 100UNITS/ML 250 ML IV SCH ×2 (06:30→20:21)
[2023-05-16] MEDS: NICOTINE 21MG/24 HR TOPICAL PATCH TD SCH (09:35)
[2023-05-16] MEDS: cefTRIAXone 1GM/50ML D5W 50 ML IV SCH (09:41)
[2023-05-16] MEDS: PANTOPRAZOLE 40 MG/10 ML VIAL INJ IV SCH (09:41)
[2023-05-16] MEDS: ATORVASTATIN 20 MG TAB PO SCH (09:41)
[2023-05-16] MEDS: CEPHALEXIN 250 MG CAP PO SCH ×3 (12:23→22:11)
[2023-05-16 19:22] LABS: INR 1.15 (0.9-1.15); Partial Thromboplastin Time 53.9 SEC (24.5-34.5)
[2023-05-16] MEDS: SENNA 8.6 MG TAB PO SCH (22:05)
[2023-05-17] VITALS (7 sets, daily range): BP systolic 127–143; BP diastolic 60–65; PULSE 64–82; RESP 17–20; TEMP 98.1–98.5; O2SAT 92–97
[2023-05-17 02:30] LABS: INR 1.11 (0.9-1.15); Partial Thromboplastin Time 50.8 SEC (24.5-34.5); Prothrombin Time 11.6 sec (9.3-11.8)
[2023-05-17] MEDS: CEPHALEXIN 250 MG CAP PO SCH ×4 (06:19→21:41)
[2023-05-17] MEDS: NICOTINE 21MG/24 HR TOPICAL PATCH TD SCH (09:08)
[2023-05-17] MEDS: ATORVASTATIN 20 MG TAB PO SCH (09:08)
[2023-05-17] MEDS: FAMOTIDINE 20 MG TAB PO SCH (09:08)
[2023-05-17] MEDS: ONDANSETRON HCL 4 MG/2 ML VIAL IV PRN (11:30)
[2023-05-17] MEDS: HYDROcodone-ACET 7.5/325MG TAB PO PRN (13:17)
[2023-05-17] MEDS: SENNA 8.6 MG TAB PO SCH (21:41)
[2023-05-18] VITALS (7 sets, daily range): BP systolic 119–146; BP diastolic 59–71; PULSE 56–93; RESP 16–18; TEMP 98–98.7; O2SAT 90–96
[2023-05-18] MEDS: HYDROcodone-ACET 7.5/325MG TAB PO PRN ×4 (03:44→21:44)
[2023-05-18] MEDS: HEPARIN DRIP/D5W 100UNITS/ML 250 ML IV SCH (03:50)
[2023-05-18 05:21] LABS: Basophils # (auto) 0 10 ^3/uL (0-0.2); Basophils % (auto) 0.9 % (0.0-2.0); Eosinophils # (auto) 0.1 10 ^3/uL (0-0.8); Eosinophils % (auto) 2.4 % (0.0-7.0); Hematocrit 29.9 % (36.0-46.0); Lymphocytes # (auto) 1.1 10 ^3/uL (0.4-5.4); Lymphocytes % (auto) 26.1 % (10.0-50.0); Mean Corpuscular Hemoglobin 30.8 pg (28.0-32.0); Mean Corpuscular Hgb Conc. 33.4 g/dL (32.0-36.0); Mean Corpuscular Volume 92.2 fL (80.0-100.0); Monocytes # (auto) 0.4 10 ^3/uL (0-1.3); Monocytes % (auto) 10.2 % (0.0-12.0); Neutrophils # (auto) 2.6 10 ^3/uL (1.6-8.6); Neutrophils % (auto) 60.4 % (37.0-80.0); Nucleated Red Blood Cells % 0.1 %; Red Blood Cells 3.24 10^6/uL (4.0-5.20); Red Cell Distribution Width 15.2 % (11.8-14.3); White Blood Cell 4.3 10^3/uL (4.4-10.8)
[2023-05-18 05:31] LABS: INR 1.09 (0.9-1.15); Partial Thromboplastin Time 52.4 SEC (24.5-34.5); Prothrombin Time 11.4 sec (9.3-11.8)
[2023-05-18] MEDS: CEPHALEXIN 250 MG CAP PO SCH ×4 (05:59→23:37)
[2023-05-18] MEDS: ATORVASTATIN 20 MG TAB PO SCH (09:48)
[2023-05-18] MEDS: FAMOTIDINE 20 MG TAB PO SCH (09:48)
[2023-05-18] MEDS: NICOTINE 21MG/24 HR TOPICAL PATCH TD SCH (09:54)
[2023-05-18] MEDS: ONDANSETRON HCL 4 MG/2 ML VIAL IV PRN (09:54)
[2023-05-18] MEDS ORDERED: GELATIN 1 SPONGE SIZE 50 TOP ONE (13:25)
[2023-05-18] MEDS: SENNA 8.6 MG TAB PO SCH (21:44)
[2023-05-19 02:59] LABS: INR 1.06 (0.9-1.15); Partial Thromboplastin Time 45.1 SEC (24.5-34.5); Prothrombin Time 11.1 sec (9.3-11.8)
[2023-05-19] MEDS ORDERED: HEPARIN DRIP/D5W 100UNITS/ML 250 ML IV SCH ×2 (03:45)
[2023-05-19] MEDS: HYDROcodone-ACET 7.5/325MG TAB PO PRN ×2 (04:12→10:43)
[2023-05-19 05:00] VITALS: BP 116/59; PULSE 66; RESP 18; TEMP 98.2; O2SAT 93
[2023-05-19] MEDS: CEPHALEXIN 250 MG CAP PO SCH (05:22)
[2023-05-19 07:54] VITALS: PULSE 76
[2023-05-19 09:00] VITALS: BP 126/73; PULSE 60; RESP 18; TEMP 97.6; O2SAT 96
[2023-05-19 09:03] LABS: Basophils # (auto) 0 10 ^3/uL (0-0.2); Basophils % (auto) 0.7 % (0.0-2.0); Eosinophils # (auto) 0.1 10 ^3/uL (0-0.8); Eosinophils % (auto) 1.9 % (0.0-7.0); Hematocrit 33.4 % (36.0-46.0); Hemoglobin 10.4 g/dL (12.2-16.2); Lymphocytes # (auto) 1.4 10 ^3/uL (0.4-5.4); Lymphocytes % (auto) 24.4 % (10.0-50.0); Mean Corpuscular Hemoglobin 30.8 pg (28.0-32.0); Mean Corpuscular Hgb Conc. 31.1 g/dL (32.0-36.0); Mean Corpuscular Volume 99.1 fL (80.0-100.0); Monocytes # (auto) 0.5 10 ^3/uL (0-1.3); Monocytes % (auto) 9.3 % (0.0-12.0); Neutrophils # (auto) 3.8 10 ^3/uL (1.6-8.6); Neutrophils % (auto) 63.7 % (37.0-80.0); Red Blood Cells 3.37 10^6/uL (4.0-5.20); Red Cell Distribution Width 16.9 % (11.8-14.3); White Blood Cell 5.9 10^3/uL (4.4-10.8)
[2023-05-19 09:16] LABS: INR 1.06 (0.9-1.15); Partial Thromboplastin Time 63.8 SEC (24.5-34.5); Prothrombin Time 11.1 sec (9.3-11.8)
[2023-05-19] MEDS: ATORVASTATIN 20 MG TAB PO SCH (09:40)
[2023-05-19] MEDS: FAMOTIDINE 20 MG TAB PO SCH (09:40)
[2023-05-19] MEDS: NICOTINE 21MG/24 HR TOPICAL PATCH TD SCH (09:41)
[2023-05-19] MEDS: ONDANSETRON HCL 4 MG/2 ML VIAL IV PRN (09:41)
[2023-05-19 12:15] VITALS: TEMP 36.4
== END 2023-05-19 12:55 | disposition home or self-care (01) | DRG 300 ==
LOC: ER 10:06 → EDBD 10:06 → TELE 14:28 → TELE-WESTW 05-11 08:20
PROVIDERS: ADMIT Nurse Practitioner Family; ATTEND Internal Medicine Geriatric Medicine
PROC: 06H03DZ Insertion of Intraluminal Device into Inferior Vena Cava, Percutaneous Approach (ICD-10-PCS; 2023-05-13)
PROC: 0FB03ZX Excision of Liver, Percutaneous Approach, Diagnostic (ICD-10-PCS; principal; 2023-05-18)
DX: I82.402 Acute embolism and thrombosis of unspecified deep veins of left lower extremity (principal); N39.0 Urinary tract infection, site not specified; Z71.6 Tobacco abuse counseling; K59.09 Other constipation; K76.9 Liver disease, unspecified; E78.2 Mixed hyperlipidemia; R16.0 Hepatomegaly, not elsewhere classified; K86.9 Disease of pancreas, unspecified; D64.9 Anemia, unspecified; Z86.711 Personal history of pulmonary embolism; Z79.01 Long term (current) use of anticoagulants; Z88.5 Allergy status to narcotic agent; Z88.6 Allergy status to analgesic agent; Z91.81 History of falling; Z87.442 Personal history of urinary calculi; Z83.3 Family history of diabetes mellitus; Z82.49 Family history of ischemic heart disease and other diseases of the circulatory system; Z72.0 Tobacco use
CPT/HCPCS: 36415; 37191; 37619; 71275; 74176; 74183; 76937; 76942; 80053; 81001; 82105; 83735; 85025; 85610; 85730; 87081; 87086; 93005; 93971; 97110; 97116; 97163; 97530; 99152; C1894; C9113; G0378; J0696; J2250; J2405; Q9967

== ENCOUNTER 2023-05-29 11:12 | Inpatient (IN) | payer OTHER ==
[~2023-05-29] VITALS: Ht 165.1 cm; Wt 52.0 kg
[~2023-05-29 11:12] MED LIST changes: +ATOR20TA50 PO; -NITR-52 PO
[2023-05-29] MEDS ORDERED: SODIUM CHLORIDE 0.9% 500 ML IVB ONE (12:00)
[2023-05-29 12:05] VITALS: PULSE 79; RESP 18; O2SAT 93
[2023-05-29 12:47] LABS: Basophils # (auto) 0 10 ^3/uL (0-0.2); Basophils % (auto) 0.4 % (0.0-2.0); Eosinophils # (auto) 0 10 ^3/uL (0-0.8); Eosinophils % (auto) 0.1 % (0.0-7.0); Hematocrit 29.6 % (36.0-46.0); Hemoglobin 9.6 g/dL (12.2-16.2); Lymphocytes # (auto) 0.7 10 ^3/uL (0.4-5.4); Lymphocytes % (auto) 6.2 % (10.0-50.0); Mean Corpuscular Hemoglobin 30.1 pg (28.0-32.0); Mean Corpuscular Hgb Conc. 32.6 g/dL (32.0-36.0); Mean Corpuscular Volume 92.6 fL (80.0-100.0); Monocytes # (auto) 1.1 10 ^3/uL (0-1.3); Monocytes % (auto) 9.8 % (0.0-12.0); Neutrophils % (auto) 83.5 % (37.0-80.0); Nucleated Red Blood Cells % 0.1 %; Red Cell Distribution Width 17.3 % (11.8-14.3); White Blood Cell 10.8 10^3/uL (4.4-10.8)
[2023-05-29 12:48] LABS: Alanine Aminotransferase 34 U/L (7-40); Alkaline Phosphatase 700 U/L (46-116); Anion Gap 10 (5-15); Aspartate Aminotransferase 117 U/L (13-40); BUN/Creatinine Ratio 44.9 (10.0-20.0); Blood Urea Nitrogen 57 mg/dL (9-23); Calcium 8.8 mg/dL (8.7-10.4); Carbon Dioxide 28 mmol/L (20-30); Chloride 90 mmol/L (98-107); Glucose 114 mg/dL (74-106); Magnesium 2.3 mg/dL (1.6-2.6); Potassium 3.7 mmol/L (3.5-5.1); Sodium 128 mmol/L (136-145)
[2023-05-29 12:49] LABS: Bilirubin, Total 1.1 mg/dL (0.2-1.0); Total Protein 6.5 g/dL (5.7-8.2)
[2023-05-29 13:57] LABS: Urine Bacteria FEW /hpf (None Seen); Urine Blood Negative /uL (Negative); Urine Budding Yeast FEW /hpf (None Seen); Urine Clarity HAZY (Clear); Urine Color Yellow (Yellow); Urine Protein, UAD TRACE (Negative); Urine WBC 2 /hpf (0 - 5); Urine pH 5.5 (5.0-8.0)
[2023-05-29] MEDS: SODIUM CHLORIDE 0.9% 1,000 ML IV SCH (15:45)
[2023-05-29] MEDS ORDERED: NITROGLYCERIN 0.4 MG SL TAB SL PRN (15:45)
[2023-05-29] MEDS ORDERED: MORPHINE SULFATE INJ 2 MG/ml SYRG IV PRN (15:45)
[2023-05-29 16:20] LABS: Amphetamine Screen, Urine Neg (NEGATIVE); Barbiturate Scree,Urine Neg (NEGATIVE); Benzodiazephine Screen, Urine Neg (NEGATIVE); Cannabinoid Screen, Urine Neg (NEGATIVE); Cocaine Screen, Urine Neg (NEGATIVE); Opiate Scree,Urine Neg (NEGATIVE); Phencyclidine Screen, Urine Neg (NEGATIVE)
[2023-05-29] MEDS ORDERED: ALBUTEROL MEDNEB 2.5 mg/3ml NEB NEB PRN (16:45)
[2023-05-29 17:02] LABS: INR > 8.0 (0.9-1.15)
[2023-05-29 17:11] VITALS: BP 122/60; PULSE 66; RESP 16; O2SAT 95
[2023-05-29] MEDS ORDERED: PANTOPRAZOLE 40 MG/10 ML VIAL INJ IV ONE (17:45)
[2023-05-29 20:10] VITALS: PULSE 80; RESP 14; O2SAT 94
[2023-05-29] MEDS ORDERED: IBUPROFEN 400 MG TAB PO PRN (21:45)
[2023-05-29 23:52] VITALS: BP 113/58; PULSE 81; RESP 18; TEMP 97.9; O2SAT 95
[2023-05-30] VITALS (10 sets, daily range): BP systolic 121–126; BP diastolic 53–70; PULSE 65–73; RESP 16–18; TEMP 97.4–98.2; O2SAT 91–100
[2023-05-30] MEDS ORDERED: HYDROmorphone HCL 2 MG/ML VL/or syr IV ONE (04:30)
[2023-05-30] MEDS ORDERED: HEPARIN SODIUM (PORCINE) 5000 UNITS/ML 1ML VIAL IV ONE (05:00)
[2023-05-30] MEDS ORDERED: HEPARIN DRIP/D5W 100UNITS/ML 250 ML IV SCH ×4 (05:00→10:20)
[2023-05-30] MEDS: SODIUM CHLORIDE 0.9% 1,000 ML IV SCH ×2 (05:05→17:17)
[2023-05-30 06:21] LABS: Basophils # (auto) 0 10 ^3/uL (0-0.2); Basophils % (auto) 0.2 % (0.0-2.0); Eosinophils # (auto) 0 10 ^3/uL (0-0.8); Eosinophils % (auto) 0.4 % (0.0-7.0); Hematocrit 27.8 % (36.0-46.0); Hemoglobin 9.2 g/dL (12.2-16.2); Lymphocytes # (auto) 0.8 10 ^3/uL (0.4-5.4); Lymphocytes % (auto) 8.3 % (10.0-50.0); Mean Corpuscular Hemoglobin 30.3 pg (28.0-32.0); Mean Corpuscular Volume 91.8 fL (80.0-100.0); Monocytes % (auto) 10.3 % (0.0-12.0); Neutrophils # (auto) 7.6 10 ^3/uL (1.6-8.6); Neutrophils % (auto) 80.8 % (37.0-80.0); Red Blood Cells 3.03 10^6/uL (4.0-5.20); Red Cell Distribution Width 17.1 % (11.8-14.3); White Blood Cell 9.4 10^3/uL (4.4-10.8)
[2023-05-30 06:59] LABS: Alanine Aminotransferase 29 U/L (7-40); Albumin 3.7 g/dL (3.2-4.8); Alkaline Phosphatase 581 U/L (46-116); Anion Gap 11 (5-15); Aspartate Aminotransferase 92 U/L (13-40); BUN/Creatinine Ratio 51.3 (10.0-20.0); Blood Urea Nitrogen 60 mg/dL (9-23); Calcium 8.8 mg/dL (8.7-10.4); Carbon Dioxide 27 mmol/L (20-30); Chloride 92 mmol/L (98-107); Glucose 77 mg/dL (74-106); Potassium 3.6 mmol/L (3.5-5.1); Sodium 130 mmol/L (136-145)
[2023-05-30 07:00] LABS: Bilirubin, Total 1.3 mg/dL (0.2-1.0); Total Protein 6.1 g/dL (5.7-8.2)
[2023-05-30 09:01] LABS: INR > 8.0 (0.9-1.15); Partial Thromboplastin Time > 139.0 SEC (24.5-34.5)
[2023-05-30] MEDS ORDERED: PATIENTS OWN MEDICATION (Cholecalciferol (Vitamin D3) 1 TAB) PO SCH (10:00)
[2023-05-30] MEDS ORDERED: WARFARIN SODIUM 5 MG TAB PO SCH (10:00)
[2023-05-30] MEDS ORDERED: ENOXAPARIN SOD 40 MG/0.4 ML SYRINGE SC SCH (10:00)
[2023-05-30] MEDS: CHOLECALCIFEROL (VITD3) 2,000 UNIT CAP/TAB PO SCH (10:25)
[2023-05-30] MEDS: PANTOPRAZOLE 40 MG/10 ML VIAL INJ IV SCH (10:25)
[2023-05-30] MEDS ORDERED: ACETAMINOPHEN 325 MG TAB PO PRN (10:45)
[2023-05-30 14:20] LABS: INR > 8.0 (0.9-1.15)
[2023-05-30 14:22] LABS: Partial Thromboplastin Time 89.4 SEC (24.5-34.5)
[2023-05-30] MEDS ORDERED: traMADol HCL 50 MG TAB PO PRN ×2 (15:30)
[2023-05-30] MEDS ORDERED: ONDANSETRON HCL 4 MG/2 ML VIAL IV PRN (21:45)
[2023-05-30] MEDS ORDERED: HYDROmorphone HCL 2 MG/ML VL/or syr IV PRN (21:45)
[2023-05-30] MEDS: traMADol HCL 50 MG TAB PO PRN (23:15)
[2023-05-31] VITALS (7 sets, daily range): BP systolic 119–142; BP diastolic 48–66; PULSE 60–75; RESP 14–48; TEMP 97.3–98.3; O2SAT 96–100
[2023-05-31 06:45] LABS: Basophils # (auto) 0 10 ^3/uL (0-0.2); Basophils % (auto) 0.3 % (0.0-2.0); Eosinophils # (auto) 0.1 10 ^3/uL (0-0.8); Eosinophils % (auto) 1.2 % (0.0-7.0); Hematocrit 26.3 % (36.0-46.0); Hemoglobin 8.7 g/dL (12.2-16.2); Lymphocytes # (auto) 0.7 10 ^3/uL (0.4-5.4); Lymphocytes % (auto) 9.5 % (10.0-50.0); Mean Corpuscular Hemoglobin 30.3 pg (28.0-32.0); Mean Corpuscular Hgb Conc. 33.2 g/dL (32.0-36.0); Mean Corpuscular Volume 91.5 fL (80.0-100.0); Monocytes # (auto) 0.8 10 ^3/uL (0-1.3); Neutrophils # (auto) 5.9 10 ^3/uL (1.6-8.6); Nucleated Red Blood Cells % 0.1 %; Red Blood Cells 2.88 10^6/uL (4.0-5.20); Red Cell Distribution Width 16.8 % (11.8-14.3); White Blood Cell 7.5 10^3/uL (4.4-10.8)
[2023-05-31 07:12] LABS: Prothrombin Time 72.2 sec (9.3-11.8)
[2023-05-31 07:28] LABS: INR 7.87 (0.9-1.15)
[2023-05-31 07:57] LABS: Alanine Aminotransferase 39 U/L (7-40); Alkaline Phosphatase 583 U/L (46-116); Anion Gap 6 (5-15); BUN/Creatinine Ratio 48.4 (10.0-20.0); Carbon Dioxide 28 mmol/L (20-30); Chloride 96 mmol/L (98-107); Glucose 98 mg/dL (74-106); Potassium 3.7 mmol/L (3.5-5.1); Sodium 130 mmol/L (136-145)
[2023-05-31 07:58] LABS: Albumin 3.5 g/dL (3.2-4.8); Aspartate Aminotransferase 109 U/L (13-40); Total Protein 5.8 g/dL (5.7-8.2)
[2023-05-31 07:59] LABS: Blood Urea Nitrogen 45 mg/dL (9-23)
[2023-05-31 09:10] LABS: Magnesium 2.1 mg/dL (1.6-2.6)
[2023-05-31] MEDS: PANTOPRAZOLE 40 MG/10 ML VIAL INJ IV SCH (10:20)
[2023-05-31] MEDS: traMADol HCL 50 MG TAB PO PRN (10:20)
[2023-05-31] MEDS: CHOLECALCIFEROL (VITD3) 2,000 UNIT CAP/TAB PO SCH (10:20)
[2023-05-31] MEDS: SODIUM CHLORIDE 0.9% 1,000 ML IV SCH (10:21)
[2023-05-31] MEDS: OXYCODONE W/ ACETAMINOPHEN 5/325MG TABLET PO PRN (21:13)
[2023-06-01] MEDS: SODIUM CHLORIDE 0.9% 1,000 ML IV SCH (00:11)
[2023-06-01 05:00] VITALS: BP 119/59; PULSE 71; RESP 17; TEMP 97.5; O2SAT 99
[2023-06-01] MEDS: traMADol HCL 50 MG TAB PO PRN (05:45)
[2023-06-01 06:36] LABS: Chloride 99 mmol/L (98-107); Potassium 3.6 mmol/L (3.5-5.1); Sodium 134 mmol/L (136-145)
[2023-06-01 06:38] LABS: Anion Gap 5 (5-15); Calcium 8.5 mg/dL (8.7-10.4); Carbon Dioxide 30 mmol/L (20-30)
[2023-06-01 06:43] LABS: Glucose 101 mg/dL (74-106)
[2023-06-01 06:48] LABS: Prothrombin Time 45.9 sec (9.3-11.8)
[2023-06-01 06:49] LABS: BUN/Creatinine Ratio 38.8 (10.0-20.0); Blood Urea Nitrogen 31 mg/dL (9-23)
[2023-06-01 07:23] LABS: INR 4.85 (0.9-1.15)
[2023-06-01 08:05] VITALS: PULSE 65
[2023-06-01] MEDS ORDERED: GADOTERATE MEG 10 MMOL/20ml INJ (0.5MMOL/ml) IV ONE (08:53)
[2023-06-01] MEDS ORDERED: OXYCODONE W/ ACETAMINOPHEN 5/325MG TABLET PO PRN (09:00)
[2023-06-01 09:06] VITALS: BP 108/54; PULSE 65; RESP 16; TEMP 98.3; O2SAT 99
[2023-06-01] MEDS ORDERED: POTASSIUM CHL 20 Meq TABLET PO SCH (10:00)
[2023-06-01] MEDS ORDERED: FUROSEMIDE 20 MG/2 ML VIAL IV SCH (10:00)
[2023-06-01] MEDS ORDERED: WARF4TAB69 PO (10:05)
[2023-06-01] MEDS: OXYCODONE W/ ACETAMINOPHEN 5/325MG TABLET PO PRN ×2 (10:13→16:02)
[2023-06-01] MEDS: CHOLECALCIFEROL (VITD3) 2,000 UNIT CAP/TAB PO SCH (10:13)
[2023-06-01 12:46] VITALS: BP 126/63; PULSE 68; RESP 16; TEMP 98.2; O2SAT 92
[2023-06-01 16:52] VITALS: BP 109/62; PULSE 73; RESP 17; TEMP 97.6; O2SAT 96
== END 2023-06-01 19:20 | disposition hospice, home (50) | DRG 374 ==
LOC: EDBD 11:12 → ER 11:12 → TELE 15:46 → TELE-CENTR 22:16 → CENTRAL 06-01 12:34
PROVIDERS: ADMIT Nurse Practitioner Family; ATTEND Internal Medicine
DX: C78.89 Secondary malignant neoplasm of other digestive organs (principal); G93.41 Metabolic encephalopathy; J96.01 Acute respiratory failure with hypoxia; N17.0 Acute kidney failure with tubular necrosis; E87.1 Hypo-osmolality and hyponatremia; R64 Cachexia; Z68.1 Body mass index [BMI] 19.9 or less, adult; Z66 Do not resuscitate; E86.0 Dehydration; D63.8 Anemia in other chronic diseases classified elsewhere; R79.1 Abnormal coagulation profile; R74.01 Elevation of levels of liver transaminase levels; T45.515A Adverse effect of anticoagulants, initial encounter; F17.210 Nicotine dependence, cigarettes, uncomplicated; Z79.01 Long term (current) use of anticoagulants; Z95.828 Presence of other vascular implants and grafts; Z82.49 Family history of ischemic heart disease and other diseases of the circulatory system; Z83.3 Family history of diabetes mellitus; Z85.07 Personal history of malignant neoplasm of pancreas; Z86.711 Personal history of pulmonary embolism; Z87.442 Personal history of urinary calculi; Z88.6 Allergy status to analgesic agent; Z88.5 Allergy status to narcotic agent; Y92.89 Other specified places as the place of occurrence of the external cause; Z86.718 Personal history of other venous thrombosis and embolism
CPT/HCPCS: 36415; 70450; 70553; 71045; 80048; 80053; 80307; 81001; 83605; 83735; 83930; 85025; 85610; 85730; 87040; 87081; 93005; 93970; 96361; 96374; 97163; C9113; G0378